=== PATIENT | female | born 1945 | race African-American/Black ===

== ENCOUNTER 2018-09-24 07:28 | Day surgery (SDC) | payer OTHER ==
[2018-09-19 14:50] VITALS: BMI 25.7
[2018-09-24] MEDS ORDERED: PROPOFOL 20 ML ONE (08:57)
[2018-09-24] MEDS ORDERED: LIDOCAINE HCL/PF 2% SDV 5ML VIAL ONE (08:57)
[2018-09-24 10:42] VITALS: BP 130/78; PULSE 74; TEMP 97.9
== END 2018-09-24 10:41 | disposition home or self-care (01) ==
LOC: FASU-ENDO 07:28
PROVIDERS: ATTEND Internal Medicine Gastroenterology
PROC: 0DJD8ZZ Inspection of Lower Intestinal Tract, Via Natural or Artificial Opening Endoscopic (ICD-10-PCS; principal; 2018-09-24 09:45)
DX: Z12.11 Encounter for screening for malignant neoplasm of colon (principal); K57.30 Diverticulosis of large intestine without perforation or abscess without bleeding